=== PATIENT | female | born 1965 | race Caucasian/White ===

== ENCOUNTER 2022-09-26 07:58 | Outpatient (CLI) | payer OTHER, SELFPAY | END 2022-09-26 07:59 | disposition home or self-care (01) | LOC: NFLDREF 09-27 12:12 | PROVIDERS: PCP Family Medicine; Referring Provider Family Medicine; Visit Provider Family Medicine | DX: Z00.00 Encounter for general adult medical examination without abnormal findings (principal); E78.00 Pure hypercholesterolemia, unspecified; E03.9 Hypothyroidism, unspecified; E66.9 Obesity, unspecified | CPT/HCPCS: 80053; 80061; 84443 ==

== ENCOUNTER 2023-11-23 13:18 | Outpatient (CLI) | payer OTHER, SELFPAY | END 2023-11-23 13:19 | disposition home or self-care (01) | PROVIDERS: PCP Family Medicine; Visit Provider Family Medicine | DX: E03.9 Hypothyroidism, unspecified (principal); E78.00 Pure hypercholesterolemia, unspecified; Z13.228 Encounter for screening for other metabolic disorders | CPT/HCPCS: 80053; 80061; 84439; 84443; 84481; 86376; 86800 ==

== ENCOUNTER 2024-02-15 10:23 | Outpatient (CLI) | payer OTHER, SELFPAY | END 2024-02-15 10:24 | disposition home or self-care (01) | PROVIDERS: PCP Family Medicine; Visit Provider Family Medicine | DX: R10.13 Epigastric pain (principal) | CPT/HCPCS: 80076 ==

== ENCOUNTER 2024-02-26 11:32 | Outpatient (CLI) | payer OTHER, SELFPAY ==
--- NOTE | 2024-02-26 12:16 | W.ANESCHARGE ---
Anesthesia Charges Start Date/Time Anesthesia Start Date: 02/26/24 Anesthesia Start Time: 12:09 Stop Date/Time Anesthesia Stop Date: 02/26/24 Anesthesia Stop Time: 12:27
--- NOTE | 2024-02-26 12:29 | W.ANESCHARGE ---
Anesthesia Charges Start Date/Time Anesthesia Start Date: 02/26/24 Anesthesia Start Time: 12:09 Stop Date/Time Anesthesia Stop Date: 02/26/24 Anesthesia Stop Time: 12:27
== END 2024-02-26 11:33 | disposition home or self-care (01) ==
LOC: OP CLINIC 11:32
PROVIDERS: PCP Family Medicine; Visit Provider Surgery
DX: K21.9 Gastro-esophageal reflux disease without esophagitis (principal); K22.89 Other specified disease of esophagus
CPT/HCPCS: 00731; 43239; 88305; J2704

== ENCOUNTER 2024-12-05 11:03 | Outpatient (CLI) | payer OTHER, SELFPAY | END 2024-12-05 11:04 | disposition home or self-care (01) | PROVIDERS: PCP Family Medicine; Visit Provider Family Medicine | DX: Z00.00 Encounter for general adult medical examination without abnormal findings (principal); E03.9 Hypothyroidism, unspecified; E78.00 Pure hypercholesterolemia, unspecified; R73.9 Hyperglycemia, unspecified; Z12.4 Encounter for screening for malignant neoplasm of cervix | CPT/HCPCS: 80053; 80061; 84443; 88141; 88142 ==